=== PATIENT | female | born 1995 | race Caucasian/White ===

== ENCOUNTER 2018-02-06 18:11 | Emergency (ER) | payer OTHER ==
[2018-02-06] MEDS: ACETAMINOPHEN 325 MG TAB PO (19:15)
[2018-02-06] MEDS: LIDOCAINE 1% (MDV) 10 ML INJ INFIL (19:19)
== END 2018-02-06 20:11 | disposition home or self-care (01) ==
LOC: FTE 18:11
DX: L60.0 Ingrowing nail (principal)
CPT/HCPCS: 11765; 99283-25